=== PATIENT | female | born 1955 | race Two or more races ===

== ENCOUNTER 2018-05-19 08:48 | Outpatient (CLI) | payer OTHER | END 2018-05-23 09:02 | disposition home or self-care (01) | LOC: RAD 08:48 | DX: K59.09 Other constipation (principal) ==

== ENCOUNTER 2022-12-04 09:34 | Inpatient (IN) | payer OTHER ==
[~2022-12-04] VITALS: Ht 167.6 cm; Wt 69.9 kg
[2022-12-04] MEDS ORDERED: COZAAR50 MG PO (13:06)
[2022-12-04] MEDS ORDERED: DAILY VALUE1 EACH PO (13:06)
[2022-12-04] MEDS ORDERED: MAGNES PO (13:07)
[2022-12-10] MEDS ORDERED: PROGESTERONE200 MG (14:23)
[2022-12-10] MEDS ORDERED: ATORVASTATIN CA40 MG (14:23)
[2022-12-10] MEDS ORDERED: OMEPRAZOLE40 MG (14:23)
[2022-12-10] MEDS ORDERED: RESTORIL7.5 MG (14:23)
[2022-12-10] MEDS ORDERED: EZETIMIBE10 MG (14:45)
[2022-12-12] MEDS ORDERED: BACTRIM DS TAB1 EACH PO (06:21)
[2022-12-12] MEDS ORDERED: OXYC1TAB9 PO (06:21)
[2022-12-12] MEDS ORDERED: INTEGRA PLUS C1 EACH PO (06:21)
[2022-12-12] MEDS ORDERED: XARELTO10 MG PO (06:21)
== END 2022-12-12 17:25 | DRG 470 ==
LOC: SURG 12-10 06:05 → O/R 12-10 06:05 → SURH 12-10 10:00 → SURG 12-10 17:08
PROVIDERS: ADMIT Orthopaedic Surgery Sports Medicine; ATTEND Orthopaedic Surgery Sports Medicine
PROC: 0SRD0J9 Replacement of Left Knee Joint with Synthetic Substitute, Cemented, Open Approach (ICD-10-PCS; principal; 2022-12-10 10:15)
DX: M17.12 Unilateral primary osteoarthritis, left knee (principal); I10 Essential (primary) hypertension; E78.5 Hyperlipidemia, unspecified; Z96.652 Presence of left artificial knee joint; Z20.822 Contact with and (suspected) exposure to COVID-19